=== PATIENT | male | born 1990 | race Asian ===

== ENCOUNTER 2019-10-09 23:02 | Emergency (ER) | payer OTHER ==
[~2019-10-09] VITALS: Ht 185.4 cm; Wt 68.0 kg
[2019-10-09 23:13] VITALS: BP 115/86
== END 2019-10-09 23:50 | disposition home or self-care (01) ==
LOC: ER 23:03
DX: S90.112A Contusion of left great toe without damage to nail, initial encounter (principal); W22.8XXA Striking against or struck by other objects, initial encounter; Y93.89 Activity, other specified; Y92.89 Other specified places as the place of occurrence of the external cause; Y99.8 Other external cause status
CPT/HCPCS: 73660; 99283